=== PATIENT | female | born 1985 | race Caucasian/White ===

== ENCOUNTER 2019-02-07 19:49 | Emergency (ER) | payer OTHER, MEDICAID ==
[2019-02-07] MEDS ORDERED: Bacitracin Oint 1 GM U/D Packet TOP ONE (20:24)
--- NOTE | 2019-02-07 20:29 | EDM.PDOC ---
ED HPI GENERAL MEDICAL PROBLEM - General Chief Complaint: Laceration Stated Complaint: RIGHT FIRST FINGER LACERATION Time Seen by Provider: 02/07/19 20:20 Source of Information: Reports: Patient History Limitations: Reports: No Limitations - History of Present Illness INITIAL COMMENTS - FREE TEXT/NARRATIVE: patient arrives to the ED with right index finger laceration, finger stuck between metal fence and railroad tie, cow pushed against fence and sharp mental laceration finger, denies crush injury. DT. up to date, denies any other injuries. 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 ED EXAM, SKIN/RASH Exam: See Below Exam Limited By: No Limitations General Appearance: Alert, WD/WN, No Apparent Distress Head: Atraumatic Neck: Normal Inspection, Supple, Non-Tender Respiratory/Chest: No Respiratory Distress Cardiovascular: Regular Rate, Rhythm Extremities: Normal Inspection, Normal Range of Motion Neurological: Alert, Oriented, CN II-XII Intact Skin: Warm, Dry, Other (1 cm laceration to right index finger, agrawal surface, distal, no tendon, ligament invovlement, no evidence of open fracture, full rom with intact cap refill) Lymphatic: No Adenopathy ED SKIN PROCEDURES - Laceration/Wound Repair Right Digit - 2nd (Index) Appearance: Subcutaneous Distal NVT: Neuro & Vascular Intact Anesthetic Type: Local Local Anesthesia - Lidocaine (Xylocaine): 1% Plain Local Anesthetic Volume: 4cc Skin Prep: Chlorhexidine (Hibiciens) Exploration/Debridement/Repair: Wound Explored Closed with: Sutures Suture Size: Other (5) # of Sutures: 10 Course - Vital Signs Last Recorded V/S: Last Vital Signs Temp 36.5 C 02/07/19 20:26 Pulse 93 02/07/19 20:26 Resp 16 02/07/19 20:26 BP 116/73 08/10/19 20:26 Pulse Ox 98 02/07/19 20:26 Anny is a 33 year old female, presents with right index finger laceration. DT up to date. Suture repair as noted above. Wound care discussed, SR in 7 days. Reasons to return to the ED discussed, patient agreeable and discharged in stable condition. - Orders/Labs/Meds Meds: Medications Discontinued Medications Generic Name Dose Route Start Last Admin Trade Name Pam PRN Reason Stop Dose Admin Bacitracin 1 dose 02/07/19 20:24 02/07/19 20:34 Bacitracin Oint 1 Gm TOP 02/07/19 20:25 1 dose ONETIME ONE Administration Lidocaine HCl 5 ml 02/07/19 20:24 02/07/19 20:35 Xylocaine-Mpf 1% INJECT 02/07/19 20:25 5 ml ONETIME ONE Administration Departure - Departure Time of Disposition: 21:15 Disposition: Home, Self-Care 01 Condition: Good Clinical Impression: Finger laceration Qualifiers: Encounter type: initial encounter Finger: index finger Damage to nail status: without damage Foreign body presence: without foreign body Laterality: right Qualified Code(s): S61.210A - Laceration without foreign body of right index finger without damage to nail, initial encounter - Discharge Information Instructions: Laceration Care, Adult Referrals: Silvio Mccord MD [Primary Care Provider] - Forms: ED Department Discharge Additional Instructions: keep clean and dry bacitracin twice daily for 3 days suture removal in 7 days return with any signs of infection
== END 2019-02-07 21:01 | disposition home or self-care (01) ==
LOC: JP.ED 19:49
DX: S61.210A Laceration without foreign body of right index finger without damage to nail, initial encounter (principal); Z88.2 Allergy status to sulfonamides; Z88.1 Allergy status to other antibiotic agents; W22.8XXA Striking against or struck by other objects, initial encounter
CPT/HCPCS: 12001; 99282; J2001

== ENCOUNTER 2022-11-20 18:22 | Emergency (ER) | payer OTHER, BC ==
[2022-11-20] MEDS ORDERED: fentaNYL 100 MCG/2 ML SDV IVPUSH ONE (18:24)
[2022-11-20] MEDS ORDERED: Sodium Chloride 0.9% 10 ML Syringe FLUSH PRN (18:24)
[2022-11-20] MEDS ORDERED: Sodium Chloride 0.9% 50 ML IV SCH (18:45)
[2022-11-20] MEDS ORDERED: Iopamidol 612 MG/ML 100 ML Bottle IV SCH (18:45)
[2022-11-20] MEDS ORDERED: Ketorolac 30 MG/ML SDV IM ONE (20:46)
[2022-11-20] MEDS ORDERED: Bacitracin Oint 1 GM U/D Packet TOP ONE (20:46)
== END 2022-11-20 22:04 | disposition home or self-care (01) ==
LOC: JP.ED 18:22
DX: S40.011A Contusion of right shoulder, initial encounter (principal); S70.01XA Contusion of right hip, initial encounter; R10.2 Pelvic and perineal pain; Z88.2 Allergy status to sulfonamides; Z90.49 Acquired absence of other specified parts of digestive tract; V86.55XA Driver of 3- or 4- wheeled all-terrain vehicle (ATV) injured in nontraffic accident, initial encounter; Y92.410 Unspecified street and highway as the place of occurrence of the external cause
CPT/HCPCS: 71260; 73130; 74177; 96372; 96374; 99284; J1885; J3010; J3490; Q9967